=== PATIENT | male | born 1960 | race African-American/Black ===

== ENCOUNTER 2016-12-05 09:02 | Emergency (ER) | payer BC ==
[~2016-12-05] VITALS: Ht 172.7 cm; Wt 97.0 kg
[2016-12-05 09:09] VITALS: BP 147/94; PULSE 56; RESP 16; TEMP 97.6; O2SAT 98
[2016-12-05] MEDS ORDERED: SODIUM CHLOR 0.9% 1000 ML INJ 1,000 ML IV SCH (09:25)
[2016-12-05] MEDS ORDERED: MORPHINE SULFATE 4 MG/ML INJ IV PUSH ONE (09:30)
[2016-12-05] MEDS ORDERED: SODIUM CHLORIDE 0.9% FLUSH 5 ML FLUSH IVF PRN (09:30)
[2016-12-05] MEDS ORDERED: ONDANSETRON HCL 4 MG/2 ML VIAL IVP ONE (09:30)
[2016-12-05] MEDS ORDERED: FAMOTIDINE 20 MG/2 ML VIAL IV PUSH ONE (09:30)
[2016-12-05 09:36] VITALS: RESP 16; O2SAT 99
[2016-12-05] MEDS ORDERED: ASPI81TA19 PO (09:43)
[2016-12-05] MEDS ORDERED: [UNRECOGNIZED DRUG - REMARK] PO (09:43)
[2016-12-05 09:47] LABS: BLOOD, URINE SMALL (NEG); GLUCOSE,URINE 100 mg/dL (NEG); KETONE, URINE NEG (NEG); NITRITE,URINE NEG (NEG); PH, URINE 6.5 (5.0-8.5)
[2016-12-05 09:57] LABS: METHOD OF COLLECTION CLEAN CATCH; URINE COLOR STRAW (YELLW/STRAW)
[2016-12-05 10:00] LABS: COMMENT (UR) CULT NOT INDICATED; COMMENT2 (UR) MUCOUS PRESENT; CULTURE IF INDICATED CULT NOT INDICATED; RBC, URINE 0-3 /hpf (0-3); SQUAMOUS EPITHELIAL CELL URINE 0-5 /hpf (0-5)
[2016-12-05 10:05] LABS: BASOPHIL # 0.1 TH/MM3 (0-0.2); BASOPHIL % 1.6 % (0.0-2.0); EOSINOPHIL # 0.1 TH/MM3 (0-0.4); EOSINOPHIL % 2.2 % (0.0-4.0); HEMATOCRIT 44.5 % (39.0-51.0); LYMPH % 14.3 % (9.0-44.0); LYMPHOCYTE # 0.8 TH/MM3 (1.0-4.8); MEAN CORPUSCULAR HEMOGLOBIN 30.6 PG (27.0-34.0); MEAN CORPUSCULAR HGB CONC 32.9 % (32.0-36.0); MONO % 6.7 % (0.0-8.0); NEUT % 75.2 % (16.0-70.0); PLATELET COUNT 318 TH/MM3 (150-450); RED BLOOD COUNT 4.79 MIL/MM3 (4.50-5.90); RED CELL DISTRIBUTION WIDTH 11.9 % (11.6-17.2); WHITE BLOOD COUNT 5.4 TH/MM3 (4.0-11.0)
[2016-12-05 10:10] LABS: HEMO FLAGS DIFF FINAL
[2016-12-05 10:16] LABS: APTT (PATIENT) 29.2 SEC (24.3-30.1); INTERNATIONAL NORMALIZED RATIO 1.1 RATIO
[2016-12-05 10:20] LABS: INDIRECT BILIRUBIN 0.5 MG/DL (0.0-0.8); TOTAL BILIRUBIN ADULT 0.6 MG/DL (0.2-1.0)
[2016-12-05 10:30] VITALS: BP 144/88; PULSE 83; RESP 16; O2SAT 99
[2016-12-05] MEDS ORDERED: IOHEXOL 350 MG/ML 10 ML VIAL (for RAD DIAG) IV ONE (10:37)
[2016-12-05 10:40] VITALS: RESP 16
--- NOTE | 2016-12-05 10:57 | RADHPO ---
EXAM DATE/TIME: 12/05/2016 10:31 [place] COMPARISON: No previous studies available for comparison. INDICATIONS : Abdominal pain since last night. IV CONTRAST: 95 cc Omnipaque 350 (iohexol) IV ORAL CONTRAST: No oral contrast ingested. RADIATION DOSE: 20.32 CTDIvol (mGy) MEDICAL HISTORY : Hypertension. Diabetes. SURGICAL HISTORY : None. ENCOUNTER: Initial ACUITY: 2 days PAIN SCALE: 6/10 LOCATION: upper quadrant abdomen/pelvis TECHNIQUE: Volumetric scanning of the abdomen and pelvis was performed. Using automated exposure control and ad justment of the mA and/or kV according to patient size, radiation dose was kept as low as reasonably achievable to obtain optimal diagnostic quality images. FINDINGS: LOWER LUNGS: The visualized lower lungs are clear. LIVER: Homogeneous density without lesion. There is no dilation of the biliary tree. No calcified gallston es. Gallbladder is usual structure without wall thickening SPLEEN: Normal size without lesion. PANCREAS: Within normal limits. KIDNEYS: Normal in size and shape. There is no mass, stone or hydronephrosis. ADRENAL GLANDS: Within normal limits. VASCULAR: There is no aortic aneurysm. BOWEL/MESENTERY: Uncomplicated diverticuli are noted throughout the colon with the appendix visualized is normal. ABDOMINAL WALL: Within normal limits. RETROPERITONEUM: There is no lymphadenopathy. BLADDER: No wall thickening or mass. REPRODUCTIVE: Within normal limits. INGUINAL: There is no lymphadenopathy or hernia. MUSCULOSKELETAL: Within normal limits for patient age. CONCLUSION: Uncomplicated diverticuli throughout the colon. Otherwise negative. Christiano Edmondson MD on December 05, 2016 at 10:53 Board Certified Radiologist. This report was verified electronically.
[2016-12-05] MEDS ORDERED: LIDOCAINE VISCOUS 2% SOLN 15 ML UDC PO ONE (11:00)
[2016-12-05] MEDS ORDERED: ALUMINUM/MAGNESIUM/SIMETH 30 ML CUP PO ONE (11:00)
[2016-12-05] MEDS ORDERED: ZANT150T2 PO (11:23)
--- NOTE | 2016-12-05 11:23 | PD ---
HPI Chief Complaint: Abdominal Pain Time Seen by Provider: 09:18 Travel History International Travel<30 days: No Contact w/Intl Traveler<30days: No Traveled to known affect area: No History of Present Illness HPI Patient is a 56 year old male who comes in complaining of abdominal pain. He says the pain started early this morning in the middle of his stomach and it spread outwards. He says he ate some spicy short ribs last night and did not feel too well afterwards. He has some nausea and has vomited. He says he last moved his bowels last night and this was normal. He denies fevers, but has felt chills. He denies any chest pain or SOB. PFSH Past Medical History Hx Anticoagulant Therapy: No Cardiovascular Problems: Yes (HTN) Diabetes: Yes (diet control) Patient Takes Glucophage: No Hypertension: Yes Tetanus Vaccination: > 5 Years Influenza Vaccination: No Past Surgical History Surgical History: No Previous Surgery Social History Alcohol Use: Yes (socially beer) Tobacco Use: No Substance Use: No Allergies-Medications (Allergen,Severity, Reaction): Coded Allergies: No Known Allergies (Unverified , 12/05/16) Reported Meds & Prescriptions Reported Meds & Active Scripts Active Reported Aspir-Low (Aspirin) 81 Mg Tabdr 1 Tab PO DAILY [b/p med's] Unknown Strength Unknown Dose PO DAILY Review of Systems Except as stated in HPI: all other systems reviewed are Neg General / Constitutional: Positive: Chills, No: Fever HENT: No: Headaches, Lightheadedness Cardiovascular: No: Chest Pain or Discomfort Respiratory: No: Shortness of Breath Gastrointestinal: Positive: Nausea, Vomiting, Abdominal Pain, No: Diarrhea Genitourinary: No: Dysuria, Flank Pain Skin: No Rash, No Change in Pigmentation Neurologic: No: Weakness, Dizziness Physical Exam Narrative GENERAL: Awake and alert in no acute distress. SKIN: Warm and dry. HEAD: Atraumatic. Normocephalic. EYES: Pupils equal and round. No scleral icterus. ENT: Mucous membranes pink and moist. NECK: Trachea midline. No JVD. CARDIOVASCULAR: Regular rate and rhythm. No murmur appreciated. RESPIRATORY: No accessory muscle use. Clear to auscultation. Breath sounds equal bilaterally. GASTROINTESTINAL: Abdomen soft, nondistended. Mild tenderness to the epigastric area. No rebound or guarding. No CVA tenderness. MUSCULOSKELETAL: No obvious deformities. No clubbing. No cyanosis. No edema. NEUROLOGICAL: Awake and alert. No obvious cranial nerve deficits. Motor grossly within normal limits. Normal speech. PSYCHIATRIC: Appropriate mood and affect; insight and judgment normal. Data Data Last Documented VS Vital Signs Date Time Temp Pulse Resp B/P Pulse Ox O2 Delivery O2 Flow Rate FiO2 12/05/16 11:46 85 16 138/86 100 12/05/16 10:30 Room Air 12/05/16 09:09 97.6 Orders Urinalysis - C+S If Indicated (12/05/16 09:14) Basic Metabolic Panel (Bmp) (12/05/16 09:25) Complete Blood Count With Diff (12/05/16 09:25) Lipase (12/05/16 09:25) Prothrombin Time / Inr (Pt) (12/05/16 09:25) Act Partial Throm Time (Ptt) (12/05/16 09:25) Ct Abd/Pel W Iv Contrast(Rout) (12/05/16 09:25) Iv Access Insert/Monitor (12/05/16 09:25) Ecg Monitoring (12/05/16 09:25) Oximetry (12/05/16 09:25) Morphine Inj (Morphine Inj) (12/05/16 09:30) Ondansetron Inj (Zofran Inj) (12/05/16 09:30) Sodium Chlor 0.9% 1000 Ml Inj (Ns 1000 M (12/05/16 09:25) Sodium Chloride 0.9% Flush (Ns Flush) (12/05/16 09:30) Famotidine Inj (Pepcid Inj) (12/05/16 09:30) Hepatic Functional Panel (12/05/16 09:25) Iohexol 350 Inj (Omnipaque 350 Inj) (12/05/16 10:37) Al-Mag Hy-Si 40-40-4 Mg/Ml Liq (Mag-Al P (12/05/16 11:00) Lidocaine 2% Viscous (Xylocaine 2% Visco (12/05/16 11:00) Labs Laboratory Tests Test 12/05/16 12/05/16 09:25 09:40 Urine Collection Type CLEAN CATCH Urine Color STRAW Urine Turbidity CLEAR Urine pH 6.5 Urine Specific [place] 1.020 Urine Protein NEG mg/dL Urine Glucose (UA) 100 mg/dL Urine Ketones NEG mg/dL Urine Occult Blood SMALL Urine Nitrite NEG Urine Bilirubin NEG Urine Leukocyte Esterase NEG Urine RBC 0-3 /hpf Urine Squamous Epithelial 0-5 /hpf Cells Urine Amorphous Sediment FEW Microscopic Urinalysis Comment CULT NOT INDICATED Urine Collection Time 0925 White Blood Count 5.4 TH/MM3 Red Blood Count 4.79 MIL/MM3 Hemoglobin 14.7 GM/DL Hematocrit 44.5 % Mean Corpuscular Volume 93.0 FL Mean Corpuscular Hemoglobin 30.6 PG Mean Corpuscular Hemoglobin 32.9 % Concent Red Cell Distribution Width 11.9 % Platelet Count 318 TH/MM3 Mean Platelet Volume 7.9 FL Neutrophils (%) (Auto) 75.2 % Lymphocytes (%) (Auto) 14.3 % Monocytes (%) (Auto) 6.7 % Eosinophils (%) (Auto) 2.2 % Basophils (%) (Auto) 1.6 % Neutrophils # (Auto) 4.0 TH/MM3 Lymphocytes # (Auto) 0.8 TH/MM3 Monocytes # (Auto) 0.4 TH/MM3 Eosinophils # (Auto) 0.1 TH/MM3 Basophils # (Auto) 0.1 TH/MM3 CBC Comment DIFF FINAL Differential Comment Prothrombin Time 12.0 SEC Prothromb Time International 1.1 RATIO Ratio Activated Partial 29.2 SEC Thromboplast Time Sodium Level 143 MEQ/L Potassium Level 4.0 MEQ/L Chloride Level 107 MEQ/L Carbon Dioxide Level 29.0 MEQ/L Anion Gap 7 MEQ/L Blood Urea Nitrogen 15 MG/DL Creatinine 1.10 MG/DL Estimat Glomerular Filtration 69 ML/MIN Rate Random Glucose 191 MG/DL Calcium Level 8.9 MG/DL Total Bilirubin 0.6 MG/DL Direct Bilirubin 0.1 MG/DL Indirect Bilirubin 0.5 MG/DL Aspartate Amino Transf 25 U/L (AST/SGOT) Alanine Aminotransferase 34 U/L (ALT/SGPT) Alkaline Phosphatase 58 U/L Total Protein 8.4 GM/DL Albumin 4.1 GM/DL Lipase 87 U/L [facility] Medical Decision Making Medical Screen Exam Complete: Yes Emergency Medical Condition: Yes Differential Diagnosis GERD versus pancreatitis versus cholecystitis versus cholelithiasis versus gastroenteritis Narrative Course Patient is a 56-year-old male who comes in complaining of abdominal pain. Exam shows mild epigastric tenderness. Patient given IV fluids, morphine, famotidine. Labs sent show no acute abnormalities. CT of the abdomen and pelvis shows no acute abnormalities. Treatment, patient states he now feels a burning sensation in his upper abdomen. Given GI cocktail. Patient states he is feeling better. Patient says he has a prescription for Nexium at home, advised to take this. Advised to avoid spicy foods, caffeine, chocolate, smoking. Advised to follow-up with his doctor. Advised to return to the ED as needed for any worsening symptoms. Diagnosis Primary Impression: GERD (gastroesophageal reflux disease) Qualified Code: K21.9 - Gastroesophageal reflux disease without esophagitis Additional Impression: Abdominal pain Qualified Code: R10.13 - Epigastric pain Patient Instructions: Gastroesophageal Reflux Disease (ED), General Instructions Additional Instructions: Eat a bland diet for the next day. Drink plenty of fluids. Avoid spicy foods, peppers, tomatoes, chocolate, caffeine in the future as this may irritate your stomach. Follow up with your doctor. Return to the ED as needed for any worsening symptoms. Disposition: 01 DISCHARGE HOME Condition: Stable Meredith Najera MD Dec 05, 2016 11:23 Meredith Najera MD Dec 05, 2016 11:23 Meredith Najera MD Dec 05, 2016 11:23
[2016-12-05 11:46] VITALS: BP 138/86
== END 2016-12-05 12:19 | disposition home or self-care (01) ==
LOC: PHED 09:02
DX: K21.9 Gastro-esophageal reflux disease without esophagitis (principal); R10.13 Epigastric pain; R11.2 Nausea with vomiting, unspecified; I10 Essential (primary) hypertension; E11.9 Type 2 diabetes mellitus without complications
CPT/HCPCS: 74177; 80048; 80076; 81001; 83690; 85025; 85610; 85730; 96361; 96374; 96375; 99284; J2270; J2405; J7030; Q9967